=== PATIENT | male | born 1975 ===

== ENCOUNTER 2023-11-01 11:54 | Emergency (ER) | payer SELFPAY ==
[2023-11-01 11:56] VITALS: BP 194/100; PULSE 108; RESP 16; TEMP 36.8; O2SAT 99; BMI 25.8
--- NOTE | 2023-11-01 12:24 | ED_ITS ---
HPI - Neck Pain/Injury <Vivian Baig PA-C - Last Filed: 11/01/23 14:53> General Chief Complaint: Neck Pain/Injury Stated Complaint: lump on neck right side sent from [facility] Time Seen by Provider: 11/01/23 12:12 History of Present Illness HPI Narrative: Patient is a very pleasant 48-year-old white male presents to the emergency room department today on behest friends and family. March of this year the patient noticed a small area on the right side of his neck, since that time the area has exponentially. Over the past week the area has become bruised, mildly tender. Family is quite concerned because it has grown to be quite prominent on the right side of his neck over the last several months. It is not impending or impinging on his airway. He does not causing any problems with eating, drinking. He does not have any difficulty with phonation. He does not have any dental pain. Or ear pain. He has not had any drainage out of the swollen area. It is hard to touch. It is mildly erythemic, and there is some bruising that is noted. There is no area of fluctuance on examination. He did not as you injury trauma to the neck area. No recent fevers per the patient. Patient smokes cigarettes 1/2 packs per day. Has not seen a dentist except 1 time in his whole life. Smokes cannabis when he has it available. Has history of hypertension used to take lisinopril stopped taking lisinopril about a year ago because it caused him to be foggy. Currently does not have a primary care doctor and currently not under the care of primary care doctor. Currently not taking any prescribed medications. Related Data Allergies Allergy/AdvReac Type Severity Reaction Status Date / Time No Known Drug Allergies Allergy Verified 11/01/23 12:00 Review of Systems <Vivian Baig PA-C - Last Filed: 11/01/23 14:53> Review of Systems Narrative: Negative except as above Constitutional Constitutional: Reports as per HPI, Reports system reviewed and no additional complaints, except as documented, Denies fatigue, Denies fever(s) and Denies headache(s) Eyes Eyes: Denies diplopia, Denies eye discharge and Denies dry eyes ENT Ears, Nose, Mouth, and Throat: Denies headache(s) Integumentary/Breasts Skin/Breast: Reports change in pigmentation, Reports lesions, Reports erythema, Reports skin swelling, Reports unusual bruising and Reports other (Large swelling area to the right side of his neck.) Neurologic Neurologic: Denies headache(s) Endocrine Endocrine: Denies fatigue Hematologic/Lymphatic Comments: No history of any type of cancer, large area swollen area on the right side of his neck. 7 in in length 4-1/2 inches in diameter Exam <Vivian Baig PA-C - Last Filed: 11/01/23 14:53> Initial Vital Signs Initial Vital Signs: Vital Signs Temperature 98.3 F 11/01/23 11:56 Pulse Rate 108 H 11/01/23 11:56 Respiratory Rate 16 11/01/23 11:56 Blood Pressure 194/100 H 11/01/23 11:56 Pulse Oximetry 99 11/01/23 11:56 Oxygen Delivery Method Room Air 11/01/23 11:56 Reviewed Const General: cooperative, healthy appearing, comfortable, well developed, well groomed, No acute distress, No in distress and No anxious Nutritional Appearance: average body habitus and well nourished Orientation: Orientation [facility] Head: normal to inspection, normocephalic and atraumatic Ears: hearing grossly normal bilaterally, external ears normal, TM's normal bilaterally, TM normal on the right, TM normal on the left and EAC's normal Teeth and gingiva: dentition normal, gingiva normal, normal teeth and gingiva, no caries and no dentures Eyes General: Yes appearance normal, both eyes and all related structures Eyelids: eyelids normal Sclera: sclerae normal Cornea: corneas normal Pupils: PERRL EOM: EOM intact bilaterally Neck Neck: full ROM and submandibular swelling (Right neck swelling 7 in in length 4- 1/2 inch in diameter right submandibul) Resp Effort & Inspection: normal respiratory effort, able to speak in complete sentences, normal respiratory pattern, respiratory effort not decreased, no respiratory distress and no stridor Auscultation: clear to auscultation bilaterally, breath sounds present, no bronchial breath sounds, no bronchovesicular breath sounds, no crackles, lung sounds not diminished, no rales, no rhonchi, no wheezes, no rubs and no vesicular sounds Tactile Fremitus: tactile fremitus absent Cardio Rate: regular rate Rhythm: regular rhythm Heart Sounds: S1 normal and S2 normal Bruits: no abdominal aortic bruits Skin General: ecchymosis (Right neck), No fluctuance, No induration and warm Neuro General: patient alert, patient awake, patient oriented x3, oriented, gait normal, tone normal and CN's II-XI intact bilaterally Cognition: normal cognition Speech: speech normal Gait: normal gait Motor: muscle tone normal throughout and strength 5/5 throughout Extrem Other: Lower and upper extremities, full range of motion, strength, pulses, cap refill Psych Appearance: grossly normal and well kempt Mental Status: mental status grossly normal Speech and Movement: speech and movement normal Mood: congruent mood Affect: normal affect Attitude: cooperative Thought Process: normal Thought Content: normal Judgment: judgment good <Madhavi Aguilar DO - Last Filed: 11/01/23 18:18> Initial Vital Signs Initial Vital Signs: Vital Signs Temperature 98.3 F 11/01/23 11:56 Pulse Rate 108 H 11/01/23 11:56 Respiratory Rate 16 11/01/23 11:56 Blood Pressure 194/100 H 11/01/23 11:56 Pulse Oximetry 99 11/01/23 11:56 Oxygen Delivery Method Room Air 11/01/23 11:56 Course <Vivian Baig PA-C - Last Filed: 11/01/23 14:53> Orders Ordered: ED Orders 11/01/23 12:23 CT soft tissue neck w con Stat 11/01/23 12:30 CBC Auto Diff [Complete Blood Count AUTO DIFF] Stat CMP [Comprehensive Metabolic Panel] Stat Lactate (Lactic Acid) Stat Procalcitonin Urgent Vital Signs Vital signs: Vital Signs - 8 hr 11/01/23 11:56 11/01/23 14:56 Temperature 98.3 F Pulse Rate 108 H 112 H Respiratory Rate 16 22 Blood Pressure 194/100 H 161/82 H Pulse Oximetry 99 98 Oxygen Delivery Method Room Air Room Air Reviewed <Madhavi Aguilar DO - Last Filed: 11/01/23 18:18> Orders Ordered: ED Orders 11/01/23 12:23 CT soft tissue neck w con Stat 11/01/23 12:30 CBC Auto Diff [Complete Blood Count AUTO DIFF] Stat CMP [Comprehensive Metabolic Panel] Stat Lactate (Lactic Acid) Stat Procalcitonin Urgent Vital Signs Vital signs: Vital Signs - 8 hr 11/01/23 11:56 11/01/23 14:56 Temperature 98.3 F Pulse Rate 108 H 112 H Respiratory Rate 16 22 Blood Pressure 194/100 H 161/82 H Pulse Oximetry 99 98 Oxygen Delivery Method Room Air Room Air MDM - Neck Pain/Injury <Vivian Baig PA-C - Last Filed: 11/01/23 14:53> Lab Data 11/01/23 12:30 11/01/23 12:30 Labs: Lab Results 11/01/23 Range/Units 12:30 WBC 7.6 (4.5-11.0) X10^3/uL RBC 3.34 L (4.5-5.9) X10^6/uL Hgb 11.8 L (13.5-17.5) g/dL Hct 33.9 L (41-53) % MCV 101.6 H (80-100) fL MCH 35.4 H (26-34) PG MCHC 34.9 (30-36) % RDW 14.2 (11.6-14.8) % Plt Count 201 (150-400) X10^3/uL Neut % (Auto) 67.6 (50-75) % Lymph % (Auto) 14.6 L (25-40) % [place] % (Auto) 16.6 H (3-14) % Eos % (Auto) 0.5 L (2-4) % Baso % (Auto) 0.7 (0-2) % Neut # (Auto) 5100 (5590-2688) /uL Lymph # (Auto) 1100 (3950-5124) /uL [place] # (Auto) 1300 H (0-900) /uL Eos # (Auto) 0 (0-450) /uL Baso # (Auto) 100 (0-100) /uL Sodium 127 L (137-145) mmol/L Potassium 3.9 (3.4-5.1) mmol/L Chloride 94 L (98-107) mmol/L Carbon Dioxide 22 (22-32) mmol/L BUN < 2 L (9-20) mg/dL Creatinine 0.28 L (0.66-1.25) mg/dL Estimated GFR > 60 (>60) mL/min BUN/Creatinine Ratio 7.1 (6-22) Glucose 101 H (70-100) mg/dL Lactate 1.8 (0.7-2.1) mmol/L Calcium 8.8 (8.4-10.2) mg/dL Total Bilirubin 0.9 (0.2-1.3) mg/dL AST 63 H (17-59) IU/L ALT 22 (<50) IU/L Alkaline Phosphatase 101 (38-126) U/L Total Protein 7.4 (6.3-8.2) g/dL Albumin 4.1 (3.5-5.0) g/dL Globulin 3.3 (1.7-4.1) g/dL Albumin/Globulin Ratio 1.2 (1.0-2.8) Procalcitonin 0.056 (<0.5) ng/mL Imaging Data CT - cervical spine: Radiologist's Impression: [address] [address] [address] Scan Report Signed Patient: Ash Barber MR#: [id number] : 1975 Acct:[id number] Age/Sex: 48 / M Date of Service: 11/01/23 Loc: ED Accession Number: [id number] Procedure: CT soft tissue neck w con Ordering Provider: Vivian Baig PA-C PROCEDURE: CT SOFT TISSUE NECK W CON INDICATIONS: large area of swelling right side of the neck TECHNIQUE: After the administration of intravenous contrast, 3.0 mm axial sections acquired from the sella to the aortic arch. 3 mm thick coronal and sagittal reformats were generated. For radiation dose reduction, the following was used: automated exposure control. COMPARISON: None. FINDINGS: Skull Base: The visualized intracranial contents, skull, and orbits are unremarkable. Visualized paranasal sinuses are clear. Pharynx and Larynx: Nasopharyngeal airway is patent but displaced to the left by massive adenopathy Muscles and Fascial Planes: Fascial planes are well maintained. No abscess or mass lesion. Lymph Nodes: Massive right-sided deep cervical confluent adenopathy with evidence of internal necrosis. Largest individual node measures 5.3 x 5.2 cm axial. Levels 2 3 and 4 are involved in on the right. No left-sided adenopathy. Vasculature: Right IJ vein is occluded. Carotid system is patent bilaterally. Submandibular and Parotid Glands: The right submandibular gland is not separately discernible from surrounding massive adenopathy Thyroid: Unremarkable. No enlarged or calcified nodules. Bones: No acute fracture. No osteolytic or blastic lesion is evident. Normal bone mineralization. Lung Apices: The visualized lung apices are clear. IMPRESSION: Massive confluent right deep cervical metastatic adenopathy. Right submandibular gland is not separately discernible, and would be a potential primary site. Chronic right internal jugular vein obstruction MDM Narrative Medical decision making narrative: Pleasant 48-year-old male presents to the emergency room department today by behest of family and friends. Large area on the right side of his neck, submandibular wrapping around to midline, 7 in in length 4-1/2 inches in diameter of a hard swelling. That has worsened and gotten bigger since March of this year. Not causing him any discomfort, not impacting his ability to eat, drink, breathe, swallow,, no difficulty with phonation. Who over the last week has noticed some bruising to the area. Family encouraged him to be seen and evaluated in the emergency room department so he presented today. Currently does not see a primary care doctor. Currently does not take any medications. Has a history of smoking, hypertension, no primary care doctor, does not currently take any medications. Currently uses cannabis on a pretty regular basis. Examination IV was established CBC CMP Procalcitonin Lactate CT scan soft tissue neck with contrast IV was started Differential diagnosis; lymphadenopathy, mandibular cancer, throat cancer, parotid gland cancer, salivary gland cancer, obstructive pathology as a lymph node. Secondary pathology associated with smoking, soft tissue swelling, cellulitis, lymphoma, <Madhavi Aguilar, - Last Filed: 11/01/23 18:18> Lab Data Labs: Lab Results 11/01/23 Range/Units 12:30 WBC 7.6 (4.5-11.0) X10^3/uL RBC 3.34 L (4.5-5.9) X10^6/uL Hgb 11.8 L (13.5-17.5) g/dL Hct 33.9 L (41-53) % MCV 101.6 H (80-100) fL MCH 35.4 H (26-34) PG MCHC 34.9 (30-36) % RDW 14.2 (11.6-14.8) % Plt Count 201 (150-400) X10^3/uL Neut % (Auto) 67.6 (50-75) % Lymph % (Auto) 14.6 L (25-40) % [place] % (Auto) 16.6 H (3-14) % Eos % (Auto) 0.5 L (2-4) % Baso % (Auto) 0.7 (0-2) % Neut # (Auto) 5100 (8501-5554) /uL Lymph # (Auto) 1100 (5013-6814) /uL [place] # (Auto) 1300 H (0-900) /uL Eos # (Auto) 0 (0-450) /uL Baso # (Auto) 100 (0-100) /uL Sodium 127 L (137-145) mmol/L Potassium 3.9 (3.4-5.1) mmol/L Chloride 94 L (98-107) mmol/L Carbon Dioxide 22 (22-32) mmol/L BUN < 2 L (9-20) mg/dL Creatinine 0.28 L (0.66-1.25) mg/dL Estimated GFR > 60 (>60) mL/min BUN/Creatinine Ratio 7.1 (6-22) Glucose 101 H (70-100) mg/dL Lactate 1.8 (0.7-2.1) mmol/L Calcium 8.8 (8.4-10.2) mg/dL Total Bilirubin 0.9 (0.2-1.3) mg/dL AST 63 H (17-59) IU/L ALT 22 (<50) IU/L Alkaline Phosphatase 101 (38-126) U/L Total Protein 7.4 (6.3-8.2) g/dL Albumin 4.1 (3.5-5.0) g/dL Globulin 3.3 (1.7-4.1) g/dL Albumin/Globulin Ratio 1.2 (1.0-2.8) Procalcitonin 0.056 (<0.5) ng/mL Discharge Plan Departure Patient Disposition: Home Clinical Impression: Swelling, mass, or lump in head and neck Activity Restrictions/Additional Instructions: Please make an appointment you need to find a primary care doctor please please please. I made an appointment at the ear nose and throat doctor for you. Asked them to then forward the biopsy report to [facility] for you. You will need a primary care doctor as well as to follow up with ENT. Hope you feel better. Referrals: Miscellaneous,Doctor, [Primary Care Provider] - Stand Alone Forms: Patient Portal/API ED Sign-out <Madhavi Aguilar - Last Filed: 11/01/23 18:18> Cosign ED Attending Vik Attestation: I was immediately available in the department for consultation. Patient was briefly seen by myself, he is in no acute distress has significantly enlarged mass on the right side of his neck but airway appears intact no stridor no difficulty breathing patient is able to lay back at a 30 degree angle without issue. Was slightly tachycardic but no hypoxia with the respiratory issues appreciated. Labs and imaging were reviewed, patient has been referred to Oncology. Discussed with MICHAEL Baig, she reached out to oncology to set up urgent follow up for workup. Patient felt appropriate for short term outpatient follow up.
--- NOTE | 2023-11-01 12:35 | PC.NURSE ---
soft tissue neck with contrast
[2023-11-01 12:42] LABS: Add Manual Diff / Slide Review NO; Basophils Absolute Auto 100 /uL (0-100); Basophils Percent Auto 0.7 % (0-2); Eosinophils Absolute Auto 0 /uL (0-450); Eosinophils Percent Auto 0.5 % (2-4); Hematocrit 33.9 % (41-53); Hemoglobin 11.8 g/dL (13.5-17.5); Lymphocytes Absolute Auto 1100 /uL (1100-4500); Lymphocytes Percent Auto 14.6 % (25-40); Mean Corpuscular HGB Conc 34.9 % (30-36); Mean Corpuscular Hemoglobin 35.4 PG (26-34); Mean Corpuscular Volume 101.6 fL (80-100); Monocytes Absolute Auto 1300 /uL (0-900); Monocytes Percent Auto 16.6 % (3-14); Neutrophils Absolute Auto 5100 /uL (1500-7000); Neutrophils Percent Auto 67.6 % (50-75); Platelet Count 201 X10^3/uL (150-400); Red Blood Cell Count 3.34 X10^6/uL (4.5-5.9); Red Cell Distribution Width 14.2 % (11.6-14.8); White Blood Cell Count 7.6 X10^3/uL (4.5-11.0)
[2023-11-01 12:59] LABS: Lactate (Lactic Acid) 1.8 mmol/L (0.7-2.1)
[2023-11-01 13:03] LABS: Alanine Aminotransferase 22 IU/L (<50); Albumin 4.1 g/dL (3.5-5.0); Albumin Globulin Ratio 1.2 (1.0-2.8); Alkaline Phosphatase 101 U/L (38-126); Aspartate Aminotransferase 63 IU/L (17-59); Bilirubin Total 0.9 mg/dL (0.2-1.3); Calcium 8.8 mg/dL (8.4-10.2); Carbon Dioxide 22 mmol/L (22-32); Chloride 94 mmol/L (98-107); Estimated Glomerular Filt Rate > 60 mL/min (>60); Globulin 3.3 g/dL (1.7-4.1); Glucose 101 mg/dL (70-100); HEMOLYSIS < 15 (0-50); Potassium 3.9 mmol/L (3.4-5.1); Sodium 127 mmol/L (137-145); Total Protein 7.4 g/dL (6.3-8.2)
[2023-11-01 13:04] LABS: BUN Creatinine Ratio 7.1 (6-22); Blood Urea Nitrogen < 2 mg/dL (9-20)
[2023-11-01 13:19] LABS: Procalcitonin 0.056 ng/mL (<0.5)
[2023-11-01 14:56] VITALS: BP 161/82; PULSE 112; RESP 22; O2SAT 98
== END 2023-11-01 15:01 | disposition home or self-care (01) ==
PROVIDERS: Emergency Provider Physician Assistant
DX: R22.0 Localized swelling, mass and lump, head (principal); I10 Essential (primary) hypertension; R79.89 Other specified abnormal findings of blood chemistry
CPT/HCPCS: 36415; 70491; 80053; 83605; 84145; 85025; 99284; Q9967

== ENCOUNTER → 2023-11-24 09:53 | Outpatient (CLI) | payer OTHER, MEDICAID, SELFPAY ==
--- NOTE | 2023-11-24 09:54 | DI.RAD.S_ITS ---
PROCEDURE: XR CHEST 2V INDICATIONS: adenocarcinoma TECHNIQUE: 2 views of the chest were acquired. COMPARISON: None. FINDINGS: Heart, mediastinum and pulmonary vascular: Heart is normal in size and configuration. Mediastinum is unremarkable. Pulmonary vascular is normal. Lungs: Clear Pleural spaces: Normal-no effusions or pneumothorax. Bones and soft tissues: Probable healing fracture of the anterior 6th and 7th ribs appreciated. IMPRESSION: No cardiopulmonary disease evident. Dictated by: Patricio Betancur M.D. on 11/27/2023 at 9:02 Approved by: Patricio Betancur M.D. on 11/27/2023 at 9:03
== END ==
PROVIDERS: PCP Family Medicine; Referring Provider Family Medicine; Visit Provider Family Medicine
DX: C80.1 Malignant (primary) neoplasm, unspecified (principal)
CPT/HCPCS: 71046